=== PATIENT | female | born 1960 | race Caucasian/White ===

== ENCOUNTER → 2018-12-30 14:41 | Outpatient (CLI) | payer OTHER, SELFPAY ==
--- NOTE | 2018-12-30 | DI.RAD.S_ITS ---
PROCEDURE: XR HIP W PEL IF DONE RT 2V INDICATIONS: RT HIP KOINT/ R/O NON DISPLACED FT/ RT TROC TECHNIQUE: AP pelvis with lateral view(s) of the right hip(s). COMPARISON: None. FINDINGS: Bones: No fractures or dislocations. Pelvic ring appears intact. No suspicious bony lesions. Early degenerative changes are present within the hips bilaterally. Soft tissues: The visualized bowel gas pattern is normal. No suspicious soft tissue calcifications. IMPRESSION: No visualized acute fracture or dislocation. However, if clinical concern and/or pain persist, short interval imaging followup in 7-10 days is recommended, as occult injury cannot be definitively excluded. Dictated by: Lupe Glynn M.D. on 12/30/2018 at 16:22 Approved by: Lupe Glynn M.D. on 12/30/2018 at 16:23
== END ==
PROVIDERS: PCP Naturopath; Visit Provider Chiropractor
DX: S79.911A Unspecified injury of right hip, initial encounter (principal); X58.XXXA Exposure to other specified factors, initial encounter
CPT/HCPCS: 73502